=== PATIENT | female | born 2000 | race Caucasian/White ===

== ENCOUNTER 2022-08-16 00:10 | Inpatient (IN) | payer SELFPAY ==
[~2022-08-16] VITALS: Ht 165.1 cm; Wt 83.9 kg
[2022-08-16 00:35] VITALS: BP 112/73
[2022-08-16] MEDS ORDERED: CARBOPROST 250 MCG/ML AMP IM PRN (01:10)
[2022-08-16] MEDS ORDERED: AMPICILLIN 2,000 MG in NACL 0.9% MINI-BAG PLUS 100 ML IV SCH (01:10)
[2022-08-16] MEDS ORDERED: ONDANSETRON 4 MG/2 ML VIAL IVP PRN ×2 (01:10→20:35)
[2022-08-16] MEDS ORDERED: METHYLERGONOVINE 0.2 MG/ML AMP IM PRN ×2 (01:10→19:25)
[2022-08-16] MEDS ORDERED: NALBUPHINE 10 MG/ML AMP IVP PRN (01:10)
[2022-08-16 01:56] LABS: BASOPHILS # (AUTO) 0.1 K/uL (0.00-0.22); BASOPHILS % (AUTO) 0.5 % (0.0-2.0); EOSINOPHILS # (AUTO) 0.1 K/uL (0-0.4); EOSINOPHILS % (AUTO) 0.7 % (0.0-4.0); HEMATOCRIT 33.2 % (36-48); HEMOGLOBIN 11.4 g/dL (12.0-16.0); LYMPHOCYTES # (AUTO) 2.2 K/uL (2.5-16.5); LYMPHOCYTES % (AUTO) 15.9 % (20.5-51.1); MEAN CORPUSCULAR HEMOGLOBIN 31 pg (27-31); MEAN CORPUSCULAR HGB CONC 34 g/dL (33-37); MEAN CORPUSCULAR VOLUME 89.4 fL (80-94); MONOCYTES # (AUTO) 0.8 K/uL (0.8-1.0); MONOCYTES % (AUTO) 6.1 % (1.7-9.3); NEUTROPHILS # (AUTO) 10.5 K/uL (1.8-7.7); NEUTROPHILS % (AUTO) 76.8 % (42.2-75.2); PLATELET COUNT (AUTO) 239 K/uL (140-450); RED BLOOD CELL COUNT(AUTO) 3.71 MIL/uL (4.20-5.40); RED CELL DISTRIBUTION WIDTH 13.4 % (11.6-13.7); WHITE BLOOD COUNT (AUTO) 13.7 K/uL (4.8-10.8)
[2022-08-16 01:59] LABS: APPEARANCE,URINE CLEAR (CLEAR); BILIRUBIN,URINE NEGATIVE (NEGATIVE); BLOOD, URINE TRACE-I (NEGATIVE); COLOR,URINE YELLOW (YELLOW); LEUKOCYTE ESTERASE ,URINE NEGATIVE (NEGATIVE); NITRITE, URINE NEGATIVE (NEGATIVE); UGLUCOSE NEGATIVE (NEGATIVE)
[2022-08-16 02:11] LABS: BARBITURATE, URINE NEGATIVE ng/ml (NEG <=200); BENZODIAZEPINE, URINE NEGATIVE ng/mL (NEG <=200); CANNABINOID, URINE NEGATIVE ng/mL (NEG <=50); COCAINE, URINE NEGATIVE ng/mL (NEG <=300); OPIATE, URINE NEGATIVE ng/mL (NEG <=2000); PHENCYCLIDINE SCREEN,URINE NEGATIVE ng/mL (NEG <=25)
[2022-08-16 02:12] LABS: RBC,URINE 0-5 /HPF (0-5); WBC,URINE 0-5 /HPF (0-5)
[2022-08-16] MEDS: LACTATED RINGERS 1,000 ML IV SCH ×2 (02:25→16:57)
[2022-08-16 02:45] LABS: ALBUMIN 2.4 g/dL (3.4-5.0); ANION GAP 15.3 (8-16); CARBON DIOXIDE 22.4 mmol/L (21-32); CREATININE 0.5 mg/dL (0.6-1.3); POTASSIUM 3.7 mmol/L (3.5-5.1); TOTAL BILIRUBIN 0.3 mg/dL (0.0-1.0)
[2022-08-16] MEDS ORDERED: OXYTOCIN 20 UNITS/LR PREMIX 1,000 ML IV ONE (02:56)
[2022-08-16] MEDS ORDERED: AMPICILLIN 2,000 MG VIAL ONE (03:56)
[2022-08-16] MEDS ORDERED: AMPICILLIN 1,000 MG in NACL 0.9% MINI-BAG PLUS 50 ML IV SCH (04:00)
[2022-08-16] MEDS ORDERED: AMPICILLIN 1,000 MG VIAL ONE (08:01)
[2022-08-16] MEDS ORDERED: ROPIVACAINE 0.2%/NS PREMIX 200 ML EPI ONE (08:39)
[2022-08-16] MEDS: OXYTOCIN 20 UNITS in LACTATED RINGERS 1,000 ML IV SCH ×3 (09:15→23:00)
--- NOTE | 2022-08-16 10:29 | NUR ---
PATIENT HAS BEEN SCREENED AND CATEGORIZED LOW NUTRITION RISK. PATIENT WILL BE SEEN WITHIN 7 DAYS OF ADMISSION. 08/16/22-08/23/[address]
[2022-08-16] MEDS ORDERED: TERBUTALINE 1 MG/ML VIAL SUBQ ONE (16:26)
[2022-08-16] MEDS ORDERED: TERBUTALINE 1 MG/ML VIAL SUBQ SCH (16:55)
[2022-08-16] MEDS ORDERED: LIDOCAINE/EPI MPF 2%1:200000 10 ML VIAL INJ ONE (18:57)
[2022-08-16] MEDS ORDERED: fentaNYL citrate 0.05 MG/ML VIAL ONE (18:59)
[2022-08-16] MEDS ORDERED: MORPHINE PRES FREE 5 MG/10 ML AMP IV ONE (19:00)
[2022-08-16] MEDS ORDERED: SIMETHICONE 80 MG TAB.CHEW PO PRN (19:25)
[2022-08-16] MEDS ORDERED: oxyCODONE/APAP 5/325 MG 1 TAB TAB PO PRN ×2 (19:25)
[2022-08-16] MEDS ORDERED: TEMAZEPAM 15 MG CAP PO PRN (19:25)
[2022-08-16] MEDS ORDERED: IBUPROFEN 800 MG TAB PO PRN ×2 (19:25→22:25)
[2022-08-16] MEDS ORDERED: diphenhydrAMINE 50 MG/ML VIAL IVP PRN ×2 (20:35)
[2022-08-16] MEDS ORDERED: NALOXONE 0.4 MG/ML VIAL IVP PRN (20:35)
[2022-08-16] MEDS ORDERED: KETOROLAC 60 MG/2 ML VIAL IM PRN (20:35)
[2022-08-16] MEDS ORDERED: DOCUSATE SOD/SENNA 50/8.6 MG 1 TAB PO SCH (21:00)
[2022-08-17 06:13] LABS: BASOPHILS % (AUTO) 0.1 % (0.0-2.0); HEMATOCRIT 31.9 % (36-48); HEMOGLOBIN 10.9 g/dL (12.0-16.0); LYMPHOCYTES # (AUTO) 1.2 K/uL (2.5-16.5); LYMPHOCYTES % (AUTO) 7.7 % (20.5-51.1); MEAN CORPUSCULAR HEMOGLOBIN 31 pg (27-31); MEAN CORPUSCULAR HGB CONC 34 g/dL (33-37); MEAN CORPUSCULAR VOLUME 89.3 fL (80-94); MONOCYTES # (AUTO) 0.5 K/uL (0.8-1.0); MONOCYTES % (AUTO) 3.5 % (1.7-9.3); NEUTROPHILS # (AUTO) 13.6 K/uL (1.8-7.7); NEUTROPHILS % (AUTO) 88.7 % (42.2-75.2); PLATELET COUNT (AUTO) 216 K/uL (140-450); RED BLOOD CELL COUNT(AUTO) 3.57 MIL/uL (4.20-5.40); RED CELL DISTRIBUTION WIDTH 13.1 % (11.6-13.7); WHITE BLOOD COUNT (AUTO) 15.3 K/uL (4.8-10.8)
[2022-08-17] MEDS ORDERED: OXYTOCIN 20 UNITS/LR PREMIX 1,000 ML IV ONE ×2 (06:15→14:34)
[2022-08-17] MEDS: OXYTOCIN 20 UNITS in LACTATED RINGERS 1,000 ML IV SCH (06:23)
[2022-08-17] MEDS: KETOROLAC 30 MG/ML VIAL IVP PRN ×2 (12:24→18:58)
[2022-08-17] MEDS ORDERED: CAMERA MC ONE (14:35)
[2022-08-17] MEDS ORDERED: IBUPROFEN 800 MG TAB PO PRN (19:25)
[2022-08-17] MEDS ORDERED: FLU VACCINE QS2022-23 0.5 ML SYR IMVAC ONE (20:10)
== END 2022-08-17 22:44 | disposition home or self-care (01) | DRG 788 ==
LOC: MLD 00:10 → MFCC 21:07
PROVIDERS: ADMIT Obstetrics & Gynecology; ATTEND Obstetrics & Gynecology
PROC: 10D00Z1 Extraction of Products of Conception, Low, Open Approach (ICD-10-PCS; principal; 2022-08-16 18:00)
DX: O48.0 Post-term pregnancy (principal); O62.0 Primary inadequate contractions; Z20.822 Contact with and (suspected) exposure to COVID-19; Z3A.41 41 weeks gestation of pregnancy; Z37.0 Single live birth
CPT/HCPCS: 36415; 51702; 80053; 80305; 81001; 85025; 85610; 85730; 86592; 86762; 86886; 86900; 86901; 87086; 87340; 87653-90; 90715; J0290; J0690; J1885; J2001; J2590; J2795; J3010; J3105; J7060; J7120